=== PATIENT | female | born 1985 | race Caucasian/White ===

== ENCOUNTER 2019-04-03 18:49 | Emergency (ER) | payer OTHER, MEDICAID ==
[~2019-04-03] VITALS: Ht 162.6 cm; Wt 89.4 kg
[~2019-04-03 18:49] MED LIST: CLEOCIN HCL300 MG PO; CLONAZEPAM 0.50.5 M1 PO; IBUPROFEN 600600 M1 PO; MEDROLDOSEPACK PO; NAPROSYN500 MG PO; NOHOMEMEDICATIONS; NORCO 5-325 TA1 EACH PO; PHENERGAN 25 MG25 MG PO; PREDNISONE 5 MG5 MG PO; PRENATAL; PRILOSEC 20 MG20 MG PO; ROBAXIN500 MG PO; TESSALON200 MG PO; TRAMADOL 50 MG50 MG PO; XANAX 0.25 MG0.25 MG PO; ZOFRAN8 MG PO; ZPAK PO; ZYRTEC
[2019-04-03] MEDS ORDERED: PRENATAL (18:57)
[2019-04-03] MEDS ORDERED: KEFLEX500 M1 PO (19:07)
[2019-04-03 19:19] VITALS: BP 146/98
== END 2019-04-03 19:20 | disposition home or self-care (01) ==
LOC: M.ERS 18:49
DX: S90.861A Insect bite (nonvenomous), right foot, initial encounter (principal); S90.561A Insect bite (nonvenomous), right ankle, initial encounter; L03.115 Cellulitis of right lower limb; Z88.5 Allergy status to narcotic agent; Z88.8 Allergy status to other drugs, medicaments and biological substances; W57.XXXA Bitten or stung by nonvenomous insect and other nonvenomous arthropods, initial encounter; Y92.89 Other specified places as the place of occurrence of the external cause; Y93.89 Activity, other specified